=== PATIENT | male | born 1970 | race Caucasian/White ===

== ENCOUNTER 2022-10-17 22:52 | Emergency (ER) | payer OTHER ==
[2022-10-18] MEDS ORDERED: Morphine 4 MG/ML VIAL ONE ×2 (00:12→01:59)
[2022-10-18] MEDS ORDERED: HYDROcodone/Acetaminophen 10/325 mg Tablet ONE (00:12)
[2022-10-18 00:47] LABS: #Eosinphils 0.3 10x3/uL (0.0-0.5); #Monocytes 1.3 10x3/uL (0.0-1.1); #Neutrophils 8.3 10x3/uL (1.5-8.4); %Basophils 0.2 % (0.0-2.0); %Eosinophils 2.4 % (0.0-6.0); %Lymphocytes 22.8 % (18.0-47.0); %Monocytes 10.2 % (0.0-10.0); Hemoglobin 15.2 g/dL (13.5-17.5); Mean Corpuscular Hemoglobin 26.7 pg (27.0-33.0); Mean Platelet Volume 11.6 fl (7.4-10.4); Platelet Count 358 10x3/uL (150-450); RBC Distribution Width 16.6 % (11.5-14.5)
[2022-10-18 00:56] LABS: ALT (SGPT) 21 U/L (8-55); AST (SGOT) 19 U/L (5-34); Albumin 4.4 g/dL (3.5-5.0); Alkaline Phosphatase 71 U/L (40-110); Anion Gap 21 mmol/L (10-20); BUN (Urea Nitrogen) 16 mg/dL (8.4-25.7); Bilirubin, Total 0.8 mg/dL (0.2-1.2); CK (CPK) 27 U/L (30-200); Calc. Creatinine Clearance 0 mL/min (70-130); Calcium 9.8 mg/dL (7.8-10.44); Carbon Dioxide 22 mmol/L (22-29); Chloride 102 mmol/L (98-107); Estimated GFR 71; Globulin 3.7 g/dL (2.4-3.5); Glucose 140 mg/dL (70-105); Potassium 4.7 mmol/L (3.5-5.1); Protein, Total 8.1 g/dL (6.0-8.3); Sodium 140 mmol/L (136-145)
== END 2022-10-18 02:23 | disposition home or self-care (01) ==
LOC: CJX 22:52 → CSHERS 10-18 02:23
DX: R25.1 Tremor, unspecified (principal); R52 Pain, unspecified; E11.9 Type 2 diabetes mellitus without complications; E78.5 Hyperlipidemia, unspecified; I10 Essential (primary) hypertension; Z86.711 Personal history of pulmonary embolism; Z79.899 Other long term (current) drug therapy; Z79.82 Long term (current) use of aspirin; Z79.84 Long term (current) use of oral hypoglycemic drugs
CPT/HCPCS: 80053; 82550; 84484; 85025; 93005; 96374; 96376; J2270

== ENCOUNTER → 2022-11-12 | Emergency (ER) | payer OTHER ==
[~2022-11-12] MED LIST: HYDROcodone/Acetaminophen 10/325 mg Tablet ONE; HYDROcodone/Acetaminophen 5/325 mg Tablet ONE; Haloperidol Lactate 5 MG/ML VIAL ONE; Lorazepam 2 MG/ML VIAL ONE; Morphine ER 15 MG TAB PO SCH; diphenhydrAMINE 50 MG/ML VIAL ONE
[2022-11-12 17:36] LABS: #Monocytes 0.5 10x3/uL (0.0-1.1); #Neutrophils 8.2 10x3/uL (1.5-8.4); %Basophils 0.2 % (0.0-2.0); %Eosinophils 0.3 % (0.0-6.0); %Lymphocytes 10.2 % (18.0-47.0); %Monocytes 5.2 % (0.0-10.0); %Neutrophils 83.7 % (40.0-75.0); Hemoglobin 11.4 g/dL (13.5-17.5); Mean Corpuscular HGB CONC 30.9 g/dL (32.0-36.0); Mean Corpuscular Hemoglobin 27.2 pg (27.0-33.0); Mean Corpuscular Volume 88.1 fl (81.2-95.1); Mean Platelet Volume 10.7 fl (7.4-10.4); Platelet Count 263 10x3/uL (150-450); RBC Distribution Width 17.7 % (11.5-14.5); Red Blood Cell (RBC) Count 4.19 10x6/uL (4.32-5.72); White Blood Cell (WBC) Count 9.8 10x3/uL (3.5-10.5)
[2022-11-12 17:43] LABS: Acetaminophen Less than 10.0 mcg/mL (10.0-30.0); Alcohol Less than 10 mg/dL (Less than 10); Salicylate Less than 8.0 mg/dL (15.0-30.0)
[2022-11-12 17:44] LABS: ALT (SGPT) 18 U/L (8-55); AST (SGOT) 30 U/L (5-34); Albumin 4.1 g/dL (3.5-5.0); Alkaline Phosphatase 82 U/L (40-110); Anion Gap 12 mmol/L (10-20); BUN (Urea Nitrogen) 13 mg/dL (8.4-25.7); Bilirubin, Total 1.1 mg/dL (0.2-1.2); Calc. Creatinine Clearance 0 mL/min (70-130); Carbon Dioxide 28 mmol/L (22-29); Chloride 102 mmol/L (98-107); Estimated GFR 76; Globulin 2.9 g/dL (2.4-3.5); Glucose 239 mg/dL (70-105); Potassium 4.4 mmol/L (3.5-5.1); Sodium 138 mmol/L (136-145)
[2022-11-12 17:56] LABS: Bilirubin Neg (Negative); Blood, Urine Negative (Negative); Clarity Clear (Clear); Glucose, Urine (Dipstick) >=1000 mg/dL (Negative); Ketone, Urine Negative (Negative); Leukocyte Negative (Negative); Nitrite Negative (Negative); Protein, Urine (Dipstick) Negative (Neg-Trace)
[2022-11-12 18:06] LABS: Amphetamine Detected (NotDetected); Barbiturates Screen Not Detected (NotDetected); Benzodiazepine Screen Detected (NotDetected); Cocaine Metabolite Screen Not Detected (NotDetected); Methadone Not Detected (NotDetected); Methamphetamine Not Detected (NotDetected); Opiate Screen Detected (NotDetected); Oxycodone Screen Not Detected (NotDetected); Phencyclidine (PCP) Not Detected (NotDetected); THC/Cannabinoid Screen Not Detected (NotDetected); Tricyclic Screen Detected (NotDetected)
== END ==
LOC: CSHERS 17:03
DX: R45.851 Suicidal ideations (principal); R45.850 Homicidal ideations; E11.9 Type 2 diabetes mellitus without complications; E78.5 Hyperlipidemia, unspecified; I10 Essential (primary) hypertension; Z79.899 Other long term (current) drug therapy; Z79.84 Long term (current) use of oral hypoglycemic drugs; Z79.4 Long term (current) use of insulin
CPT/HCPCS: 36416; 80053; 80306; 80307; 81003; 85025; 96372; 99285; J1200; J1630; J2060

== ENCOUNTER 2023-02-05 13:28 | Inpatient (IN) | payer OTHER ==
[~2023-02-05 13:28] MED LIST changes: -HYDROcodone/Acetaminophen 10/325 mg Tablet ONE; -HYDROcodone/Acetaminophen 5/325 mg Tablet ONE; -Haloperidol Lactate 5 MG/ML VIAL ONE; +Iopamidol 300 61% 100 ML VIAL FS ONE; +Iopamidol 370 76% 100 ML VIAL ONE; -Lorazepam 2 MG/ML VIAL ONE; -Morphine ER 15 MG TAB PO SCH; -diphenhydrAMINE 50 MG/ML VIAL ONE
[2023-02-05] MEDS ORDERED: Naloxone HCl 0.4 mg/ml Vial ONE (14:17)
[2023-02-05 14:37] LABS: ALT (SGPT) 16 U/L (8-55); AST (SGOT) 22 U/L (5-34); Albumin 3.6 g/dL (3.5-5.0); Alkaline Phosphatase 76 U/L (40-110); Anion Gap 15 mmol/L (10-20); BUN (Urea Nitrogen) 14 mg/dL (8.4-25.7); Bilirubin, Total 0.6 mg/dL (0.2-1.2); Calc. Creatinine Clearance 0 mL/min (70-130); Calcium 8.6 mg/dL (7.8-10.44); Carbon Dioxide 27 mmol/L (22-29); Chloride 94 mmol/L (98-107); Estimated GFR 70; Glucose 252 mg/dL (70-105); Lipase 16 U/L (8-78); Potassium 3.6 mmol/L (3.5-5.1); Protein, Total 6.6 g/dL (6.0-8.3); Sodium 132 mmol/L (136-145)
[2023-02-05 14:39] LABS: #Basophils 0.1 10x3/uL (0.0-0.2); #Eosinphils 0.5 10x3/uL (0.0-0.5); #Monocytes 1.5 10x3/uL (0.0-1.1); #Neutrophils 19.4 10x3/uL (1.5-8.4); %Basophils 0.2 % (0.0-2.0); %Eosinophils 2.3 % (0.0-6.0); %Lymphocytes 5.7 % (18.0-47.0); %Monocytes 6.4 % (0.0-10.0); %Neutrophils 84.9 % (40.0-75.0); Hemoglobin 13.2 g/dL (13.5-17.5); Mean Corpuscular HGB CONC 32.1 g/dL (32.0-36.0); Mean Corpuscular Hemoglobin 28.1 pg (27.0-33.0); Mean Corpuscular Volume 87.6 fl (81.2-95.1); Mean Platelet Volume 10.3 fl (7.4-10.4); Platelet Count 312 10x3/uL (150-450); RBC Distribution Width 14.7 % (11.5-14.5); Red Blood Cell (RBC) Count 4.69 10x6/uL (4.32-5.72); White Blood Cell (WBC) Count 22.8 10x3/uL (3.5-10.5)
[2023-02-05] MEDS ORDERED: cefTRIAXone (ROCEPHIN) 1 GM VIAL ONE (15:47)
[2023-02-05 15:48] LABS: Bilirubin Neg (Negative); Blood, Urine Negative (Negative); Clarity Clear (Clear); Glucose, Urine (Dipstick) >=1000 mg/dL (Negative); Ketone, Urine Negative (Negative); Leukocyte Negative (Negative); Nitrite Negative (Negative); Protein, Urine (Dipstick) 15 mg/dl (Neg-Trace); Urobilinogen Normal mg/dL (Less than 2)
[2023-02-05] MEDS ORDERED: Azithromycin 500 MG VIAL ONE (15:48)
[2023-02-05 16:20] LABS: Bacteria/HPF None Seen HPF (None Seen); CAUTI Indications for Culture Alt mental st,lethar; RBC/HPF None Seen HPF (0-3); Squamous Epithelial None Seen HPF (0-3); Urine Culture Reflex No No; WBC/HPF None Seen HPF (0-3)
[2023-02-05 17:19] LABS: Lactic Acid 1.8 mmol/L (0.5-2.2)
[2023-02-05 18:55] LABS: Actual Bicarbonate (HCO3v) 32.9 mEq/L (22-28); Base Excess 4.9 mEq/L (-2 - +2); Calcium, Ionized (venous) 1.04 mmol/L (1.16-1.32); Chloride (VBG) 96 mmol/L (98-106); Hematocrit-VBG 39 % (42.0-52.0); Hemoglobin (Hb) 13.4 g/dL (13.1-17.2); Potassium (VBG) 4.33 mmol/L (3.70-5.30); Puncture Site Other Site; RapidComm Collect By CBN; Sodium 133.7 mmol/L (133-146); pH (venous) 7.322 (7.32-7.43)
[2023-02-05 20:58] LABS: SARS-CoV-2 NAA Rapid Test Not Detected (NotDetected)
[2023-02-05] MEDS ORDERED: Cefepime 2 GM in Sodium Chloride 0.9% 100 ML IVPB SCH (21:00)
[2023-02-05] MEDS ORDERED: Dextrose 5% in Water 1,000 ML IV PRN (21:36)
[2023-02-05] MEDS ORDERED: Dextrose 50% Abboject 50 ML SYRINGE SLOW IVP PRN (21:36)
[2023-02-05] MEDS ORDERED: Glucagon 1 MG/ML KIT IM PRN (21:36)
[2023-02-05] MEDS ORDERED: Insulin Regular 300 UNITS/3 ML VIAL SC PRN (21:36)
[2023-02-05 23:51] VITALS: BMI 41.1
[2023-02-06] MEDS: Cefepime 2 GM in Sodium Chloride 0.9% 100 ML IVPB SCH ×3 (00:08→23:01)
[2023-02-06] MEDS ORDERED: DULoxetine 30 MG CAP PO SCH ×2 (01:15→09:00)
[2023-02-06] MEDS ORDERED: Lantus 1000 UNITS/10 ML VIAL SC SCH ×2 (01:15→21:00)
[2023-02-06] MEDS: HYDROcodone/Acetaminophen 10/325 mg Tablet PO PRN ×2 (01:29→13:04)
[2023-02-06] MEDS ORDERED: Azithromycin 500 MG in Sodium Chloride 0.9% 250 ML 250 ML IVPB SCH (02:30)
[2023-02-06 03:59] LABS: #Eosinphils 0.7 10x3/uL (0.0-0.5); %Basophils 0.2 % (0.0-2.0); %Lymphocytes 11.3 % (18.0-47.0); %Monocytes 7.2 % (0.0-10.0); Hemoglobin 11.9 g/dL (13.5-17.5); Mean Corpuscular HGB CONC 31.8 g/dL (32.0-36.0); Mean Corpuscular Hemoglobin 27.8 pg (27.0-33.0); Mean Corpuscular Volume 87.4 fl (81.2-95.1); Mean Platelet Volume 10.4 fl (7.4-10.4); Platelet Count 298 10x3/uL (150-450); RBC Distribution Width 14.9 % (11.5-14.5); Red Blood Cell (RBC) Count 4.28 10x6/uL (4.32-5.72); White Blood Cell (WBC) Count 14.4 10x3/uL (3.5-10.5)
[2023-02-06 04:22] LABS: ALT (SGPT) 12 U/L (8-55); AST (SGOT) 17 U/L (5-34); Albumin 3.2 g/dL (3.5-5.0); Alkaline Phosphatase 67 U/L (40-110); Anion Gap 17 mmol/L (10-20); BUN (Urea Nitrogen) 12 mg/dL (8.4-25.7); Bilirubin, Total 0.5 mg/dL (0.2-1.2); Calc. Creatinine Clearance 183 mL/min (70-130); Calcium 8.5 mg/dL (7.8-10.44); Carbon Dioxide 26 mmol/L (22-29); Chloride 99 mmol/L (98-107); Estimated GFR 94; Globulin 2.9 g/dL (2.4-3.5); Glucose 128 mg/dL (70-105); Protein, Total 6.1 g/dL (6.0-8.3); Sodium 139 mmol/L (136-145)
[2023-02-06 05:01] LABS: Legionella Urinary Ag Negative (Negative); Strep pneumo Urine Ag NEGATIVE (NEGATIVE)
[2023-02-06] MEDS ORDERED: Electrolyte Replacement Protocol 1 EACH FS PRN (05:08)
[2023-02-06] MEDS ORDERED: Potassium Chloride 20 MEQ TAB PO SCH (05:15)
[2023-02-06 05:35] LABS: Magnesium 1.7 mg/dL (1.6-2.6); Phosphorus 1.9 mg/dL (2.3-4.7)
[2023-02-06] MEDS: Mometasone/Formoterol 200/5 60 PUFF INH SCH ×2 (06:45→20:00)
[2023-02-06] MEDS ORDERED: Naloxone HCl 0.4 mg/ml Vial IV PRN (07:56)
[2023-02-06] MEDS ORDERED: predniSONE 10 MG TAB PO SCH ×2 (08:00→10:00)
[2023-02-06] MEDS ORDERED: Magnesium 2 GM/50 ML(in water) 2 GM in Premix Bag 1 BAG IVPB SCH (09:00)
[2023-02-06] MEDS ORDERED: ALPRAZolam 1 MG TAB PO SCH (09:00)
[2023-02-06] MEDS: Morphine ER 15 MG TAB PO SCH ×3 (09:02→23:04)
[2023-02-06] MEDS: Apixaban 5 MG TAB PO SCH ×2 (09:03→23:06)
[2023-02-06] MEDS: PHOS-NAK 1 PKT PACK PO SCH ×2 (09:03→12:52)
[2023-02-06] MEDS: ALPRAZolam 1 MG TAB PO SCH ×3 (09:04→23:25)
[2023-02-06] MEDS: tiZANidine HCl 4 MG TAB PO SCH ×2 (09:05→23:04)
[2023-02-06] MEDS: Aspirin 81 mg Enteric Coated Tablet PO SCH (09:05)
[2023-02-06] MEDS: metFORMIN 500 MG TAB PO SCH ×3 (09:05→23:05)
[2023-02-06] MEDS: Metoprolol Tartrate 25 MG TAB PO SCH ×2 (09:05→23:05)
[2023-02-06] MEDS: Pregabalin 75 MG CAP PO SCH ×3 (15:11→23:03)
[2023-02-06] MEDS ORDERED: VANCOMYCIN 2 GRAM/400 ML BAG 2 GM in Premix Bag 1 BAG IVPB SCH (16:00)
[2023-02-06] MEDS: DULoxetine 30 MG CAP PO SCH ×2 (22:30→23:04)
[2023-02-06] MEDS: Atorvastatin Calcium 10 MG TAB PO SCH ×2 (22:30→23:05)
[2023-02-06] MEDS: traZODone HCl 50 MG TAB PO SCH (23:06)
[2023-02-07 04:28] LABS: #Eosinphils 0.1 10x3/uL (0.0-0.5); #Monocytes 0.6 10x3/uL (0.0-1.1); #Neutrophils 7.8 10x3/uL (1.5-8.4); %Basophils 0.1 % (0.0-2.0); %Eosinophils 0.9 % (0.0-6.0); %Lymphocytes 11.1 % (18.0-47.0); %Monocytes 6.5 % (0.0-10.0); Hemoglobin 11.6 g/dL (13.5-17.5); Mean Corpuscular Volume 87.5 fl (81.2-95.1); Mean Platelet Volume 10.4 fl (7.4-10.4); Platelet Count 275 10x3/uL (150-450); RBC Distribution Width 14.8 % (11.5-14.5); Red Blood Cell (RBC) Count 4.15 10x6/uL (4.32-5.72); White Blood Cell (WBC) Count 9.6 10x3/uL (3.5-10.5)
[2023-02-07] MEDS: VANCOMYCIN 1.75 GM/350 ML BAG 1.75 GM in Premix Bag 1 BAG IVPB SCH ×2 (04:38→18:39)
[2023-02-07 04:46] LABS: ALT (SGPT) 9 U/L (8-55); AST (SGOT) 13 U/L (5-34); Albumin 3.3 g/dL (3.5-5.0); Alkaline Phosphatase 58 U/L (40-110); Anion Gap 13 mmol/L (10-20); BUN (Urea Nitrogen) 10 mg/dL (8.4-25.7); Bilirubin, Total 0.6 mg/dL (0.2-1.2); Calc. Creatinine Clearance 222 mL/min (70-130); Calcium 8.5 mg/dL (7.8-10.44); Carbon Dioxide 28 mmol/L (22-29); Chloride 98 mmol/L (98-107); Estimated GFR 106; Globulin 2.9 g/dL (2.4-3.5); Glucose 179 mg/dL (70-105); Phosphorus 2.4 mg/dL (2.3-4.7); Potassium 3.4 mmol/L (3.5-5.1); Protein, Total 6.2 g/dL (6.0-8.3); Sodium 136 mmol/L (136-145)
[2023-02-07] MEDS ORDERED: Potassium Chloride 20 MEQ TAB PO SCH (08:00)
[2023-02-07] MEDS ORDERED: Magnesium 2 GM/50 ML(in water) 2 GM in Premix Bag 1 BAG IVPB SCH (08:00)
[2023-02-07] MEDS: DULoxetine 30 MG CAP PO SCH ×2 (10:05→21:14)
[2023-02-07] MEDS: Apixaban 5 MG TAB PO SCH ×2 (10:05→21:14)
[2023-02-07] MEDS: Aspirin 81 mg Enteric Coated Tablet PO SCH (10:05)
[2023-02-07] MEDS: ALPRAZolam 1 MG TAB PO SCH ×2 (10:05→21:12)
[2023-02-07] MEDS: Morphine ER 15 MG TAB PO SCH ×3 (10:06→21:13)
[2023-02-07] MEDS: Metoprolol Tartrate 25 MG TAB PO SCH ×2 (10:06→21:14)
[2023-02-07] MEDS: predniSONE 20 MG TAB PO SCH (10:07)
[2023-02-07] MEDS: metFORMIN 500 MG TAB PO SCH ×2 (10:07→21:12)
[2023-02-07] MEDS: tiZANidine HCl 4 MG TAB PO SCH ×2 (10:07→21:13)
[2023-02-07] MEDS: Mometasone/Formoterol 200/5 60 PUFF INH SCH ×2 (10:20→18:38)
[2023-02-07] MEDS: Pregabalin 75 MG CAP PO SCH ×3 (10:48→21:11)
[2023-02-07] MEDS: Cefepime 2 GM in Sodium Chloride 0.9% 100 ML IVPB SCH (14:10)
[2023-02-07] MEDS ORDERED: Lantus 1000 UNITS/10 ML VIAL SC SCH (21:00)
[2023-02-07] MEDS: traZODone HCl 50 MG TAB PO SCH (21:12)
[2023-02-07] MEDS: Atorvastatin Calcium 10 MG TAB PO SCH (21:13)
[2023-02-08] MEDS: Cefepime 2 GM in Sodium Chloride 0.9% 100 ML IVPB SCH ×2 (02:51→12:03)
[2023-02-08] MEDS: HYDROcodone/Acetaminophen 10/325 mg Tablet PO PRN (02:53)
[2023-02-08] MEDS: Pregabalin 75 MG CAP PO SCH ×2 (04:23→15:00)
[2023-02-08] MEDS: VANCOMYCIN 1.75 GM/350 ML BAG 1.75 GM in Premix Bag 1 BAG IVPB SCH ×2 (04:23→15:16)
[2023-02-08] MEDS: Insulin Regular 300 UNITS/3 ML VIAL SC PRN ×3 (06:26→17:21)
[2023-02-08] MEDS: Morphine ER 15 MG TAB PO SCH ×2 (08:27→15:14)
[2023-02-08] MEDS: ALPRAZolam 1 MG TAB PO SCH (08:28)
[2023-02-08] MEDS: Apixaban 5 MG TAB PO SCH (08:28)
[2023-02-08] MEDS: predniSONE 20 MG TAB PO SCH (08:28)
[2023-02-08] MEDS: DULoxetine 30 MG CAP PO SCH (08:29)
[2023-02-08] MEDS: Aspirin 81 mg Enteric Coated Tablet PO SCH (08:29)
[2023-02-08] MEDS: metFORMIN 500 MG TAB PO SCH (08:29)
[2023-02-08] MEDS: tiZANidine HCl 4 MG TAB PO SCH (08:30)
[2023-02-08] MEDS: Metoprolol Tartrate 25 MG TAB PO SCH (08:30)
[2023-02-08 09:03] LABS: #Eosinphils 0.4 10x3/uL (0.0-0.5); #Monocytes 0.7 10x3/uL (0.0-1.1); #Neutrophils 8.2 10x3/uL (1.5-8.4); %Basophils 0.3 % (0.0-2.0); %Lymphocytes 18.8 % (18.0-47.0); %Monocytes 6.3 % (0.0-10.0); %Neutrophils 71.3 % (40.0-75.0); Hemoglobin 13.8 g/dL (13.5-17.5); Mean Corpuscular HGB CONC 31.4 g/dL (32.0-36.0); Mean Corpuscular Hemoglobin 28.2 pg (27.0-33.0); Mean Corpuscular Volume 89.8 fl (81.2-95.1); Mean Platelet Volume 10.3 fl (7.4-10.4); Platelet Count 314 10x3/uL (150-450); RBC Distribution Width 15.1 % (11.5-14.5); Red Blood Cell (RBC) Count 4.89 10x6/uL (4.32-5.72); White Blood Cell (WBC) Count 11.5 10x3/uL (3.5-10.5)
[2023-02-08 09:37] LABS: ALT (SGPT) 10 U/L (8-55); AST (SGOT) 18 U/L (5-34); Albumin 3.7 g/dL (3.5-5.0); Alkaline Phosphatase 77 U/L (40-110); Anion Gap 16 mmol/L (10-20); BUN (Urea Nitrogen) 7 mg/dL (8.4-25.7); Bilirubin, Total 0.5 mg/dL (0.2-1.2); Calc. Creatinine Clearance 216 mL/min (70-130); Calcium 9.1 mg/dL (7.8-10.44); Carbon Dioxide 23 mmol/L (22-29); Chloride 105 mmol/L (98-107); Estimated GFR 106; Globulin 3.6 g/dL (2.4-3.5); Glucose 150 mg/dL (70-105); Potassium 3.9 mmol/L (3.5-5.1); Protein, Total 7.3 g/dL (6.0-8.3); Sodium 140 mmol/L (136-145)
[2023-02-08 15:57] LABS: Vancomycin, Trough 16.1 ug/mL
[2023-02-08 16:00] VITALS: BP 124/86; TEMP 98.2
[2023-02-11 22:08] LABS: Mycoplasma pneumoniae IgG AB 113 U/mL (0-99); Mycoplasma pneumoniae IgM AB Less than 770 U/mL (0-769)
== END 2023-02-08 18:38 | disposition home or self-care (01) | DRG 871 ==
LOC: CSHERS 13:28 → CSHTELE 23:34
PROVIDERS: ADMIT Internal Medicine; ATTEND Internal Medicine
PROC: 4A033R1 Measurement of Arterial Saturation, Peripheral, Percutaneous Approach (ICD-10-PCS; principal; 2023-02-05)
PROC: 3E03329 Introduction of Other Anti-infective into Peripheral Vein, Percutaneous Approach (ICD-10-PCS; 2023-02-05)
DX: A41.9 Sepsis, unspecified organism (principal); J18.9 Pneumonia, unspecified organism; J96.21 Acute and chronic respiratory failure with hypoxia; Z68.41 Body mass index [BMI] 40.0-44.9, adult; Z20.822 Contact with and (suspected) exposure to COVID-19; I10 Essential (primary) hypertension; E78.5 Hyperlipidemia, unspecified; F41.9 Anxiety disorder, unspecified; F32.A Depression, unspecified; K46.9 Unspecified abdominal hernia without obstruction or gangrene; E11.9 Type 2 diabetes mellitus without complications; D86.9 Sarcoidosis, unspecified; G89.29 Other chronic pain; M79.7 Fibromyalgia; G47.00 Insomnia, unspecified; E66.01 Morbid (severe) obesity due to excess calories; Z79.84 Long term (current) use of oral hypoglycemic drugs; Z79.52 Long term (current) use of systemic steroids; Z79.82 Long term (current) use of aspirin; Z79.899 Other long term (current) drug therapy; Z79.01 Long term (current) use of anticoagulants; Z79.4 Long term (current) use of insulin; Z91.09 Other allergy status, other than to drugs and biological substances; Z88.8 Allergy status to other drugs, medicaments and biological substances; Z88.1 Allergy status to other antibiotic agents; Z95.5 Presence of coronary angioplasty implant and graft; Z86.711 Personal history of pulmonary embolism; Z98.84 Bariatric surgery status; Z95.810 Presence of automatic (implantable) cardiac defibrillator
CPT/HCPCS: 36415; 36416; 71045; 71275; 74177; 80053; 80202; 81001; 82805; 83605; 83690; 83735; 84100; 84132; 84145; 85025; 87040; 87081; 87449; 87633; 87899; 94664; 94760; 96365; 96375; J0456; J0692; J0696; J1815; J2310; J3370; J3475; J3490; J7050; J7512; Q9967

== ENCOUNTER 2023-04-01 14:54 | Inpatient (IN) | payer OTHER ==
[~2023-04-01 14:54] MED LIST changes: -Iopamidol 300 61% 100 ML VIAL FS ONE
[2023-04-01] MEDS ORDERED: cefTRIAXone (ROCEPHIN) 1 GM VIAL ONE (15:34)
[2023-04-01 15:43] LABS: #Eosinphils 0.3 10x3/uL (0.0-0.5); #Monocytes 1.4 10x3/uL (0.0-1.1); #Neutrophils 10.3 10x3/uL (1.5-8.4); %Basophils 0.1 % (0.0-2.0); %Eosinophils 1.7 % (0.0-6.0); %Lymphocytes 17.5 % (18.0-47.0); %Monocytes 9.8 % (0.0-10.0); %Neutrophils 70.4 % (40.0-75.0); Hematocrit 42.8 % (38.8-50.0); Hemoglobin 13.2 g/dL (13.5-17.5); Mean Corpuscular HGB CONC 30.8 g/dL (32.0-36.0); Mean Corpuscular Volume 84.3 fl (81.2-95.1); Mean Platelet Volume 10.5 fl (7.4-10.4); Platelet Count 390 10x3/uL (150-450); RBC Distribution Width 15.3 % (11.5-14.5); Red Blood Cell (RBC) Count 5.08 10x6/uL (4.32-5.72); White Blood Cell (WBC) Count 14.6 10x3/uL (3.5-10.5)
[2023-04-01 15:59] LABS: ALT (SGPT) 17 U/L (8-55); AST (SGOT) 19 U/L (5-34); Albumin 3.8 g/dL (3.5-5.0); Alkaline Phosphatase 61 U/L (40-110); Anion Gap 18 mmol/L (10-20); BUN (Urea Nitrogen) 31 mg/dL (8.4-25.7); Bilirubin, Total 0.6 mg/dL (0.2-1.2); Calc. Creatinine Clearance 0 mL/min (70-130); Calcium 9.1 mg/dL (7.8-10.44); Carbon Dioxide 24 mmol/L (22-29); Chloride 99 mmol/L (98-107); Estimated GFR 32; Globulin 3.2 g/dL (2.4-3.5); Glucose 218 mg/dL (70-105); Potassium 3.5 mmol/L (3.5-5.1); Sodium 137 mmol/L (136-145)
[2023-04-01 16:04] LABS: Troponin I 0.034 ng/mL (< 0.028)
[2023-04-01] MEDS ORDERED: Acetaminophen 500 MG TAB ONE (16:40)
[2023-04-01] MEDS ORDERED: Dextrose 50% Abboject 50 ML SYRINGE SLOW IVP PRN (16:52)
[2023-04-01] MEDS ORDERED: Dextrose 5% in Water 1,000 ML IV PRN (16:52)
[2023-04-01] MEDS ORDERED: Acetaminophen 325 MG TAB PO PRN (16:52)
[2023-04-01] MEDS ORDERED: Glucagon 1 MG/ML KIT IM PRN (16:52)
[2023-04-01 18:26] LABS: Lactic Acid 2.4 mmol/L (0.5-2.2)
[2023-04-01 18:53] LABS: Magnesium 2.2 mg/dL (1.6-2.6)
[2023-04-01 18:57] LABS: Troponin I 0.024 ng/mL (< 0.028)
[2023-04-01 21:34] VITALS: BMI 39.5
[2023-04-01] MEDS: Sodium Chloride 0.9% 1,000 ML IV SCH (22:05)
[2023-04-01] MEDS: Apixaban 5 MG TAB PO SCH (22:06)
[2023-04-01] MEDS: Lantus 1000 UNITS/10 ML VIAL SC SCH (22:06)
[2023-04-01] MEDS: Cefepime 2 GM in Sodium Chloride 0.9% 100 ML IVPB SCH (22:18)
[2023-04-01 22:22] LABS: Troponin I 0.023 ng/mL (< 0.028)
[2023-04-01] MEDS ORDERED: HYDROcodone/Acetaminophen 5/325 mg Tablet PO SCH (23:45)
[2023-04-01] MEDS ORDERED: Morphine ER 15 MG TAB PO SCH (23:45)
[2023-04-01] MEDS ORDERED: VANCOMYCIN 2 GRAM/400 ML BAG 2 GM in Premix Bag 1 BAG IVPB SCH (23:59)
[2023-04-02] MEDS: Sodium Chloride 0.9% 1,000 ML IV SCH ×3 (04:28→21:49)
[2023-04-02 04:56] LABS: #Eosinphils 0.5 10x3/uL (0.0-0.5); #Monocytes 1.2 10x3/uL (0.0-1.1); #Neutrophils 7.5 10x3/uL (1.5-8.4); %Basophils 0.3 % (0.0-2.0); %Eosinophils 3.9 % (0.0-6.0); %Lymphocytes 24.4 % (18.0-47.0); %Monocytes 9.5 % (0.0-10.0); %Neutrophils 61.4 % (40.0-75.0); Hematocrit 42.8 % (38.8-50.0); Hemoglobin 12.8 g/dL (13.5-17.5); Mean Corpuscular HGB CONC 29.9 g/dL (32.0-36.0); Mean Corpuscular Hemoglobin 26.4 pg (27.0-33.0); Mean Corpuscular Volume 88.4 fl (81.2-95.1); Platelet Count 339 10x3/uL (150-450); RBC Distribution Width 15.8 % (11.5-14.5); Red Blood Cell (RBC) Count 4.84 10x6/uL (4.32-5.72); White Blood Cell (WBC) Count 12.3 10x3/uL (3.5-10.5)
[2023-04-02 05:12] LABS: ALT (SGPT) 17 U/L (8-55); AST (SGOT) 23 U/L (5-34); Albumin 3.8 g/dL (3.5-5.0); Alkaline Phosphatase 61 U/L (40-110); Anion Gap 16 mmol/L (10-20); BUN (Urea Nitrogen) 30 mg/dL (8.4-25.7); Bilirubin, Total 0.4 mg/dL (0.2-1.2); Calc. Creatinine Clearance 89 mL/min (70-130); Calcium 8.6 mg/dL (7.8-10.44); Carbon Dioxide 26 mmol/L (22-29); Chloride 100 mmol/L (98-107); Estimated GFR 42; Globulin 3.4 g/dL (2.4-3.5); Glucose 122 mg/dL (70-105); Potassium 3.7 mmol/L (3.5-5.1); Protein, Total 7.2 g/dL (6.0-8.3); Sodium 138 mmol/L (136-145)
[2023-04-02 05:41] LABS: Bilirubin Neg (Negative); Blood, Urine Negative (Negative); Clarity Clear (Clear); Glucose, Urine (Dipstick) Normal (Negative); Ketone, Urine Negative (Negative); Leukocyte 25 (Negative); Nitrite Negative (Negative); Protein, Urine (Dipstick) 30 mg/dl (Neg-Trace); Urobilinogen Normal mg/dL (Less than 2)
[2023-04-02 05:56] LABS: Bacteria/HPF Rare-Few HPF (None Seen); CAUTI Indications for Culture Fever or rigors; RBC/HPF None Seen HPF (0-3); Squamous Epithelial 0-3 HPF (0-3)
[2023-04-02 05:57] LABS: Urine Culture Reflex No No
[2023-04-02] MEDS ORDERED: Metoprolol Tartrate 25 MG TAB PO SCH (09:00)
[2023-04-02] MEDS ORDERED: Morphine ER 30 MG TAB PO SCH (09:00)
[2023-04-02] MEDS ORDERED: Morphine ER 15 MG TAB PO SCH ×2 (09:30→15:00)
[2023-04-02] MEDS: Cefepime 2 GM in Sodium Chloride 0.9% 100 ML IVPB SCH ×2 (09:45→21:47)
[2023-04-02] MEDS: predniSONE 20 MG TAB PO SCH (09:48)
[2023-04-02] MEDS: Atorvastatin Calcium 10 MG TAB PO SCH (09:48)
[2023-04-02] MEDS: Apixaban 5 MG TAB PO SCH ×2 (09:48→21:47)
[2023-04-02] MEDS: Furosemide 20 MG TAB PO SCH ×2 (09:56→14:59)
[2023-04-02] MEDS: Topiramate 25 MG TAB PO SCH ×2 (09:58→21:47)
[2023-04-02] MEDS: Lubiprostone 8 MCG CAP PO SCH ×2 (09:59→23:20)
[2023-04-02] MEDS: Morphine ER 15 MG TAB PO SCH ×2 (14:59→21:47)
[2023-04-02] MEDS: metFORMIN 500 MG TAB PO SCH (17:12)
[2023-04-02] MEDS: Insulin Regular 300 UNITS/3 ML VIAL SC PRN (17:26)
[2023-04-02] MEDS: Lantus 1000 UNITS/10 ML VIAL SC SCH (21:46)
[2023-04-02] MEDS: Metoprolol Tartrate 25 MG TAB PO SCH (21:47)
[2023-04-02] MEDS: VANCOMYCIN 1.75 GM/350 ML BAG 1.75 GM in Premix Bag 1 BAG IVPB SCH (23:42)
[2023-04-03] MEDS: Lubiprostone 8 MCG CAP PO SCH ×4 (00:01→21:28)
[2023-04-03] MEDS: HYDROcodone/Acetaminophen 10/325 mg Tablet PO PRN ×3 (04:01→21:18)
[2023-04-03 05:43] LABS: #Eosinphils 0.4 10x3/uL (0.0-0.5); #Monocytes 0.9 10x3/uL (0.0-1.1); #Neutrophils 6.6 10x3/uL (1.5-8.4); %Basophils 0.2 % (0.0-2.0); %Eosinophils 4.2 % (0.0-6.0); %Lymphocytes 23.9 % (18.0-47.0); %Monocytes 8.5 % (0.0-10.0); %Neutrophils 62.7 % (40.0-75.0); Hematocrit 39.4 % (38.8-50.0); Hemoglobin 12.3 g/dL (13.5-17.5); Mean Corpuscular HGB CONC 31.2 g/dL (32.0-36.0); Mean Corpuscular Hemoglobin 26.9 pg (27.0-33.0); Mean Corpuscular Volume 86.2 fl (81.2-95.1); Mean Platelet Volume 10.5 fl (7.4-10.4); Platelet Count 265 10x3/uL (150-450); RBC Distribution Width 15.4 % (11.5-14.5); Red Blood Cell (RBC) Count 4.57 10x6/uL (4.32-5.72); White Blood Cell (WBC) Count 10.4 10x3/uL (3.5-10.5)
[2023-04-03 05:54] LABS: ALT (SGPT) 13 U/L (8-55); AST (SGOT) 11 U/L (5-34); Albumin 3.4 g/dL (3.5-5.0); Alkaline Phosphatase 53 U/L (40-110); Anion Gap 10 mmol/L (10-20); BUN (Urea Nitrogen) 17 mg/dL (8.4-25.7); Bilirubin, Total 0.7 mg/dL (0.2-1.2); Calc. Creatinine Clearance 180 mL/min (70-130); Calcium 8.6 mg/dL (7.8-10.44); Carbon Dioxide 35 mmol/L (22-29); Chloride 99 mmol/L (98-107); Estimated GFR 96; Globulin 2.8 g/dL (2.4-3.5); Glucose 123 mg/dL (70-105); Potassium 4.2 mmol/L (3.5-5.1); Protein, Total 6.2 g/dL (6.0-8.3); Sodium 140 mmol/L (136-145)
[2023-04-03] MEDS: Metoprolol Tartrate 25 MG TAB PO SCH ×2 (10:10→20:27)
[2023-04-03] MEDS: Apixaban 5 MG TAB PO SCH ×2 (10:11→20:27)
[2023-04-03] MEDS: predniSONE 20 MG TAB PO SCH (10:11)
[2023-04-03] MEDS: Atorvastatin Calcium 10 MG TAB PO SCH (10:11)
[2023-04-03] MEDS: metFORMIN 500 MG TAB PO SCH ×2 (10:11→18:31)
[2023-04-03] MEDS: Furosemide 20 MG TAB PO SCH ×2 (10:17→15:34)
[2023-04-03] MEDS: Morphine ER 15 MG TAB PO SCH ×3 (10:42→20:28)
[2023-04-03] MEDS: Topiramate 25 MG TAB PO SCH ×2 (10:44→20:27)
[2023-04-03] MEDS: Cefepime 2 GM in Sodium Chloride 0.9% 100 ML IVPB SCH ×2 (11:32→21:04)
[2023-04-03] MEDS: Insulin Regular 300 UNITS/3 ML VIAL SC PRN ×2 (11:33→16:22)
[2023-04-03] MEDS: Sodium Chloride 0.9% 1,000 ML IV SCH ×2 (19:39→19:40)
[2023-04-03] MEDS: Lantus 1000 UNITS/10 ML VIAL SC SCH (20:28)
[2023-04-03 23:08] LABS: SARS-CoV-2 NAA Rapid Test Not Detected (NotDetected)
[2023-04-04 01:24] LABS: Vancomycin, Trough 7.3 ug/mL
[2023-04-04] MEDS: VANCOMYCIN 2 GRAM/400 ML BAG 2 GM in Premix Bag 1 BAG IVPB SCH (01:34)
[2023-04-04] MEDS: Sodium Chloride 0.9% 1,000 ML IV SCH ×2 (04:09→17:30)
[2023-04-04] MEDS: Metoprolol Tartrate 25 MG TAB PO SCH ×2 (08:10→20:28)
[2023-04-04] MEDS: predniSONE 20 MG TAB PO SCH (08:11)
[2023-04-04] MEDS: metFORMIN 500 MG TAB PO SCH ×2 (08:11→16:45)
[2023-04-04] MEDS: Atorvastatin Calcium 10 MG TAB PO SCH (08:12)
[2023-04-04] MEDS: Apixaban 5 MG TAB PO SCH ×2 (08:12→20:28)
[2023-04-04] MEDS: Morphine ER 15 MG TAB PO SCH ×3 (08:12→20:27)
[2023-04-04] MEDS: Furosemide 20 MG TAB PO SCH ×2 (08:12→14:39)
[2023-04-04] MEDS: Lubiprostone 8 MCG CAP PO SCH ×2 (08:31→20:28)
[2023-04-04] MEDS: Topiramate 25 MG TAB PO SCH (08:33)
[2023-04-04] MEDS: Cefepime 2 GM in Sodium Chloride 0.9% 100 ML IVPB SCH ×2 (09:22→21:39)
[2023-04-04] MEDS: Ondansetron ODT 4 MG TAB PO PRN (09:26)
[2023-04-04 09:33] LABS: #Eosinphils 0.4 10x3/uL (0.0-0.5); #Neutrophils 6.4 10x3/uL (1.5-8.4); %Basophils 0.2 % (0.0-2.0); %Eosinophils 3.4 % (0.0-6.0); %Lymphocytes 24.9 % (18.0-47.0); %Monocytes 9.5 % (0.0-10.0); %Neutrophils 61.7 % (40.0-75.0); Hematocrit 40.1 % (38.8-50.0); Hemoglobin 12.2 g/dL (13.5-17.5); Mean Corpuscular HGB CONC 30.4 g/dL (32.0-36.0); Mean Corpuscular Hemoglobin 26.3 pg (27.0-33.0); Mean Corpuscular Volume 86.6 fl (81.2-95.1); Mean Platelet Volume 10.3 fl (7.4-10.4); Platelet Count 242 10x3/uL (150-450); RBC Distribution Width 15.9 % (11.5-14.5); Red Blood Cell (RBC) Count 4.63 10x6/uL (4.32-5.72); White Blood Cell (WBC) Count 10.4 10x3/uL (3.5-10.5)
[2023-04-04 09:55] LABS: ALT (SGPT) 14 U/L (8-55); AST (SGOT) 16 U/L (5-34); Albumin 3.3 g/dL (3.5-5.0); Alkaline Phosphatase 44 U/L (40-110); Anion Gap 15 mmol/L (10-20); BUN (Urea Nitrogen) 14 mg/dL (8.4-25.7); Bilirubin, Total 1.1 mg/dL (0.2-1.2); Calc. Creatinine Clearance 196 mL/min (70-130); Calcium 8.5 mg/dL (7.8-10.44); Carbon Dioxide 25 mmol/L (22-29); Chloride 100 mmol/L (98-107); Estimated GFR 104; Glucose 117 mg/dL (70-105); Potassium 3.2 mmol/L (3.5-5.1); Protein, Total 6.3 g/dL (6.0-8.3); Sodium 137 mmol/L (136-145)
[2023-04-04] MEDS ORDERED: Morphine ER 15 MG TAB PO SCH (10:15)
[2023-04-04] MEDS ORDERED: Naloxone HCl 0.4 mg/ml Vial IV PRN (10:16)
[2023-04-04] MEDS: Insulin Regular 300 UNITS/3 ML VIAL SC PRN (16:43)
[2023-04-04] MEDS: Lantus 1000 UNITS/10 ML VIAL SC SCH (20:29)
[2023-04-04 21:09] LABS: Magnesium 1.6 mg/dL (1.6-2.6)
[2023-04-05] MEDS: Sodium Chloride 0.9% 1,000 ML IV SCH ×3 (01:57→21:37)
[2023-04-05] MEDS: VANCOMYCIN 2 GRAM/400 ML BAG 2 GM in Premix Bag 1 BAG IVPB SCH (01:57)
[2023-04-05 03:15] LABS: #Eosinphils 0.3 10x3/uL (0.0-0.5); #Monocytes 1.1 10x3/uL (0.0-1.1); #Neutrophils 6.2 10x3/uL (1.5-8.4); %Basophils 0.2 % (0.0-2.0); %Eosinophils 2.4 % (0.0-6.0); %Lymphocytes 26.7 % (18.0-47.0); %Monocytes 10.2 % (0.0-10.0); %Neutrophils 60.1 % (40.0-75.0); Hematocrit 39.7 % (38.8-50.0); Hemoglobin 12.4 g/dL (13.5-17.5); Mean Corpuscular HGB CONC 31.2 g/dL (32.0-36.0); Mean Corpuscular Hemoglobin 26.8 pg (27.0-33.0); Mean Corpuscular Volume 85.7 fl (81.2-95.1); Mean Platelet Volume 11.1 fl (7.4-10.4); Platelet Count 297 10x3/uL (150-450); RBC Distribution Width 15.9 % (11.5-14.5); Red Blood Cell (RBC) Count 4.63 10x6/uL (4.32-5.72); White Blood Cell (WBC) Count 10.4 10x3/uL (3.5-10.5)
[2023-04-05 04:18] LABS: Anion Gap 11 mmol/L (10-20); BUN (Urea Nitrogen) 13 mg/dL (8.4-25.7); Calc. Creatinine Clearance 192 mL/min (70-130); Calcium 8.6 mg/dL (7.8-10.44); Carbon Dioxide 29 mmol/L (22-29); Chloride 103 mmol/L (98-107); Estimated GFR 103; Glucose 137 mg/dL (70-105); Potassium 3.4 mmol/L (3.5-5.1); Sodium 140 mmol/L (136-145)
[2023-04-05] MEDS ORDERED: Potassium Chloride 20 MEQ TAB PO SCH (04:45)
[2023-04-05] MEDS: Metoprolol Tartrate 25 MG TAB PO SCH ×2 (08:01→21:19)
[2023-04-05] MEDS: Morphine ER 15 MG TAB PO SCH ×3 (08:01→21:20)
[2023-04-05] MEDS: metFORMIN 500 MG TAB PO SCH ×2 (08:01→16:51)
[2023-04-05] MEDS: Atorvastatin Calcium 10 MG TAB PO SCH (08:02)
[2023-04-05] MEDS: Furosemide 20 MG TAB PO SCH ×2 (08:02→14:13)
[2023-04-05] MEDS: predniSONE 20 MG TAB PO SCH (08:02)
[2023-04-05] MEDS: Apixaban 5 MG TAB PO SCH ×2 (08:04→21:19)
[2023-04-05] MEDS: Lubiprostone 8 MCG CAP PO SCH ×2 (08:04→21:20)
[2023-04-05] MEDS: Cefepime 2 GM in Sodium Chloride 0.9% 100 ML IVPB SCH ×2 (10:43→21:36)
[2023-04-05] MEDS: HYDROcodone/Acetaminophen 10/325 mg Tablet PO PRN ×2 (10:48→17:30)
[2023-04-05] MEDS ORDERED: Magnesium 2 GM/50 ML(in water) 2 GM in Premix Bag 1 BAG IVPB SCH (11:00)
[2023-04-05] MEDS: Insulin Regular 300 UNITS/3 ML VIAL SC PRN (11:52)
[2023-04-05] MEDS: VANCOMYCIN 1.25 GM/250 ML BAG 1.25 GM in Premix Bag 1 BAG IVPB SCH (13:51)
[2023-04-05] MEDS ORDERED: hydrALAZINE 20 MG/ML VIAL SLOW IVP SCH (18:00)
[2023-04-05] MEDS: Lantus 1000 UNITS/10 ML VIAL SC SCH ×2 (21:18→21:28)
[2023-04-06] MEDS: VANCOMYCIN 1.25 GM/250 ML BAG 1.25 GM in Premix Bag 1 BAG IVPB SCH ×2 (01:48→13:43)
[2023-04-06 05:21] LABS: Anion Gap 14 mmol/L (10-20); BUN (Urea Nitrogen) 12 mg/dL (8.4-25.7); Calc. Creatinine Clearance 213 mL/min (70-130); Calcium 8.7 mg/dL (7.8-10.44); Carbon Dioxide 22 mmol/L (22-29); Chloride 106 mmol/L (98-107); Estimated GFR 106; Glucose 97 mg/dL (70-105); Potassium 3.5 mmol/L (3.5-5.1); Sodium 138 mmol/L (136-145)
[2023-04-06 05:28] LABS: #Eosinphils 0.3 10x3/uL (0.0-0.5); #Monocytes 0.7 10x3/uL (0.0-1.1); #Neutrophils 5.3 10x3/uL (1.5-8.4); %Basophils 0.2 % (0.0-2.0); %Eosinophils 3.1 % (0.0-6.0); %Monocytes 8.4 % (0.0-10.0); Hematocrit 41.1 % (38.8-50.0); Hemoglobin 12.6 g/dL (13.5-17.5); Mean Corpuscular HGB CONC 30.7 g/dL (32.0-36.0); Mean Corpuscular Hemoglobin 26.1 pg (27.0-33.0); Mean Corpuscular Volume 85.3 fl (81.2-95.1); Mean Platelet Volume 11.8 fl (7.4-10.4); Platelet Count 200 10x3/uL (150-450); RBC Distribution Width 16.6 % (11.5-14.5); Red Blood Cell (RBC) Count 4.82 10x6/uL (4.32-5.72); White Blood Cell (WBC) Count 8.7 10x3/uL (3.5-10.5)
[2023-04-06] MEDS: Sodium Chloride 0.9% 1,000 ML IV SCH ×2 (06:36→16:34)
[2023-04-06] MEDS: Furosemide 20 MG TAB PO SCH ×2 (09:48→13:43)
[2023-04-06] MEDS: predniSONE 20 MG TAB PO SCH (09:48)
[2023-04-06] MEDS: Metoprolol Tartrate 25 MG TAB PO SCH ×2 (09:48→22:06)
[2023-04-06] MEDS: Atorvastatin Calcium 10 MG TAB PO SCH (09:48)
[2023-04-06] MEDS: Cefepime 2 GM in Sodium Chloride 0.9% 100 ML IVPB SCH ×2 (09:49→22:06)
[2023-04-06] MEDS: Apixaban 5 MG TAB PO SCH ×2 (09:49→22:06)
[2023-04-06] MEDS: Magnesium Oxide 400 MG TAB PO SCH (09:49)
[2023-04-06] MEDS: metFORMIN 500 MG TAB PO SCH ×2 (09:49→16:35)
[2023-04-06] MEDS: Lubiprostone 8 MCG CAP PO SCH ×2 (09:53→22:06)
[2023-04-06] MEDS: Morphine ER 15 MG TAB PO SCH ×3 (12:13→22:07)
[2023-04-06 12:27] LABS: Vancomycin, Trough 16.3 ug/mL
[2023-04-06] MEDS: HYDROcodone/Acetaminophen 10/325 mg Tablet PO PRN (16:35)
[2023-04-06] MEDS: Lantus 1000 UNITS/10 ML VIAL SC SCH (22:08)
[2023-04-07] MEDS: VANCOMYCIN 1.25 GM/250 ML BAG 1.25 GM in Premix Bag 1 BAG IVPB SCH ×2 (01:41→11:57)
[2023-04-07 04:51] LABS: Anion Gap 12 mmol/L (10-20); BUN (Urea Nitrogen) 11 mg/dL (8.4-25.7); Calc. Creatinine Clearance 211 mL/min (70-130); Calcium 8.7 mg/dL (7.8-10.44); Carbon Dioxide 22 mmol/L (22-29); Chloride 107 mmol/L (98-107); Estimated GFR 106; Glucose 134 mg/dL (70-105); Potassium 3.2 mmol/L (3.5-5.1); Sodium 138 mmol/L (136-145)
[2023-04-07 04:57] LABS: #Eosinphils 0.3 10x3/uL (0.0-0.5); #Monocytes 0.8 10x3/uL (0.0-1.1); #Neutrophils 5.8 10x3/uL (1.5-8.4); %Basophils 0.2 % (0.0-2.0); %Eosinophils 3.1 % (0.0-6.0); %Lymphocytes 23.6 % (18.0-47.0); %Monocytes 9.2 % (0.0-10.0); %Neutrophils 63.6 % (40.0-75.0); Hemoglobin 11.9 g/dL (13.5-17.5); Mean Corpuscular HGB CONC 31.3 g/dL (32.0-36.0); Mean Corpuscular Hemoglobin 26.6 pg (27.0-33.0); Mean Corpuscular Volume 84.8 fl (81.2-95.1); Mean Platelet Volume 10.8 fl (7.4-10.4); Platelet Count 263 10x3/uL (150-450); RBC Distribution Width 16.8 % (11.5-14.5); Red Blood Cell (RBC) Count 4.48 10x6/uL (4.32-5.72); White Blood Cell (WBC) Count 9.1 10x3/uL (3.5-10.5)
[2023-04-07] MEDS: VANCOMYCIN 1.75 GM/350 ML BAG 1.75 GM in Premix Bag 1 BAG IVPB SCH (08:00)
[2023-04-07] MEDS: Atorvastatin Calcium 10 MG TAB PO SCH (09:07)
[2023-04-07] MEDS: Metoprolol Tartrate 25 MG TAB PO SCH ×2 (09:07→21:43)
[2023-04-07] MEDS: Magnesium Oxide 400 MG TAB PO SCH (09:07)
[2023-04-07] MEDS: Apixaban 5 MG TAB PO SCH ×2 (09:07→21:43)
[2023-04-07] MEDS: Furosemide 20 MG TAB PO SCH ×2 (09:07→15:27)
[2023-04-07] MEDS: Cefepime 2 GM in Sodium Chloride 0.9% 100 ML IVPB SCH ×2 (09:07→21:42)
[2023-04-07] MEDS: predniSONE 20 MG TAB PO SCH (09:08)
[2023-04-07] MEDS: metFORMIN 500 MG TAB PO SCH ×2 (09:08→15:27)
[2023-04-07] MEDS: Morphine ER 15 MG TAB PO SCH ×3 (09:08→21:42)
[2023-04-07] MEDS: Lubiprostone 8 MCG CAP PO SCH ×2 (09:10→21:42)
[2023-04-07] MEDS ORDERED: Potassium Chloride 20 MEQ TAB PO SCH (11:00)
[2023-04-07 11:32] LABS: Magnesium 1.7 mg/dL (1.6-2.6)
[2023-04-07] MEDS: HYDROcodone/Acetaminophen 10/325 mg Tablet PO PRN (13:05)
[2023-04-07] MEDS: Ondansetron ODT 4 MG TAB PO PRN (13:05)
[2023-04-07] MEDS: Lantus 1000 UNITS/10 ML VIAL SC SCH (21:43)
[2023-04-08 00:33] LABS: Vancomycin, Trough 15.1 ug/mL
[2023-04-08 04:01] LABS: #Eosinphils 0.3 10x3/uL (0.0-0.5); #Neutrophils 6.3 10x3/uL (1.5-8.4); %Basophils 0.2 % (0.0-2.0); %Lymphocytes 24.2 % (18.0-47.0); %Monocytes 9.5 % (0.0-10.0); %Neutrophils 62.7 % (40.0-75.0); Hemoglobin 12.7 g/dL (13.5-17.5); Mean Corpuscular HGB CONC 31.8 g/dL (32.0-36.0); Mean Corpuscular Hemoglobin 27.2 pg (27.0-33.0); Mean Corpuscular Volume 85.7 fl (81.2-95.1); Mean Platelet Volume 10.8 fl (7.4-10.4); Platelet Count 240 10x3/uL (150-450); Red Blood Cell (RBC) Count 4.67 10x6/uL (4.32-5.72); White Blood Cell (WBC) Count 10.1 10x3/uL (3.5-10.5)
[2023-04-08 04:07] LABS: Anion Gap 12 mmol/L (10-20); BUN (Urea Nitrogen) 10 mg/dL (8.4-25.7); Calc. Creatinine Clearance 199 mL/min (70-130); Calcium 8.8 mg/dL (7.8-10.44); Carbon Dioxide 24 mmol/L (22-29); Chloride 107 mmol/L (98-107); Estimated GFR 104; Glucose 131 mg/dL (70-105); Potassium 3.4 mmol/L (3.5-5.1); Sodium 140 mmol/L (136-145)
[2023-04-08] MEDS: Morphine ER 15 MG TAB PO SCH ×3 (09:06→21:03)
[2023-04-08] MEDS: Atorvastatin Calcium 10 MG TAB PO SCH (09:07)
[2023-04-08] MEDS: Furosemide 20 MG TAB PO SCH ×2 (09:07→14:13)
[2023-04-08] MEDS: Metoprolol Tartrate 25 MG TAB PO SCH ×2 (09:08→21:02)
[2023-04-08] MEDS: Magnesium Oxide 400 MG TAB PO SCH (09:08)
[2023-04-08] MEDS: metFORMIN 500 MG TAB PO SCH ×2 (09:08→16:00)
[2023-04-08] MEDS: Lubiprostone 8 MCG CAP PO SCH ×2 (09:08→21:09)
[2023-04-08] MEDS: Apixaban 5 MG TAB PO SCH ×2 (09:09→21:02)
[2023-04-08] MEDS: predniSONE 20 MG TAB PO SCH (09:09)
[2023-04-08] MEDS: HYDROcodone/Acetaminophen 10/325 mg Tablet PO PRN (10:46)
[2023-04-08] MEDS: Ondansetron ODT 4 MG TAB PO PRN ×3 (10:47→21:02)
[2023-04-08] MEDS: Potassium Chloride 20 MEQ TAB PO SCH (16:00)
[2023-04-08] MEDS ORDERED: Calcium Carbonate 500 MG ChewTAB PO PRN (18:27)
[2023-04-08] MEDS: Lantus 1000 UNITS/10 ML VIAL SC SCH (21:06)
[2023-04-09] MEDS: HYDROcodone/Acetaminophen 10/325 mg Tablet PO PRN ×2 (00:22→11:02)
[2023-04-09] MEDS: Ondansetron ODT 4 MG TAB PO PRN ×2 (03:27→08:27)
[2023-04-09 04:33] LABS: #Eosinphils 0.3 10x3/uL (0.0-0.5); #Neutrophils 6.4 10x3/uL (1.5-8.4); %Basophils 0.2 % (0.0-2.0); %Eosinophils 2.6 % (0.0-6.0); %Lymphocytes 26.3 % (18.0-47.0); %Monocytes 9.1 % (0.0-10.0); %Neutrophils 61.4 % (40.0-75.0); Hematocrit 39.7 % (38.8-50.0); Hemoglobin 12.6 g/dL (13.5-17.5); Mean Corpuscular HGB CONC 31.7 g/dL (32.0-36.0); Mean Corpuscular Hemoglobin 27.2 pg (27.0-33.0); Mean Corpuscular Volume 85.6 fl (81.2-95.1); Mean Platelet Volume 11.2 fl (7.4-10.4); Platelet Count 253 10x3/uL (150-450); RBC Distribution Width 17.1 % (11.5-14.5); Red Blood Cell (RBC) Count 4.64 10x6/uL (4.32-5.72); White Blood Cell (WBC) Count 10.4 10x3/uL (3.5-10.5)
[2023-04-09 05:45] LABS: Anion Gap 14 mmol/L (10-20); BUN (Urea Nitrogen) 11 mg/dL (8.4-25.7); Calc. Creatinine Clearance 194 mL/min (70-130); Calcium 8.7 mg/dL (7.8-10.44); Carbon Dioxide 26 mmol/L (22-29); Chloride 105 mmol/L (98-107); Estimated GFR 103; Glucose 103 mg/dL (70-105); Potassium 3.5 mmol/L (3.5-5.1); Sodium 141 mmol/L (136-145)
[2023-04-09] MEDS: metFORMIN 500 MG TAB PO SCH ×2 (08:24→16:18)
[2023-04-09] MEDS: Metoprolol Tartrate 25 MG TAB PO SCH (08:24)
[2023-04-09] MEDS: Atorvastatin Calcium 10 MG TAB PO SCH (08:24)
[2023-04-09] MEDS: Furosemide 20 MG TAB PO SCH ×2 (08:24→14:17)
[2023-04-09] MEDS: Magnesium Oxide 400 MG TAB PO SCH (08:24)
[2023-04-09] MEDS: predniSONE 20 MG TAB PO SCH (08:25)
[2023-04-09] MEDS: Apixaban 5 MG TAB PO SCH (08:26)
[2023-04-09] MEDS: Morphine ER 15 MG TAB PO SCH ×2 (08:26→14:15)
[2023-04-09] MEDS: Potassium Chloride 20 MEQ TAB PO SCH (08:27)
[2023-04-09] MEDS: Lubiprostone 8 MCG CAP PO SCH (08:33)
[2023-04-09] MEDS: Insulin Regular 300 UNITS/3 ML VIAL SC PRN (12:11)
[2023-04-09 16:11] VITALS: BP 143/81; TEMP 97.9
== END 2023-04-09 17:39 | disposition home or self-care (01) | DRG 871 ==
LOC: CSHERS 14:54 → CSHTELE 21:04 → CSHICU 04-03 09:59 → CSHTELE 04-05 19:56
PROVIDERS: ADMIT Student in an Organized Health Care Education/Training Program; ATTEND Internal Medicine
DX: A41.9 Sepsis, unspecified organism (principal); I21.A1 Myocardial infarction type 2; N17.9 Acute kidney failure, unspecified; E87.20 Acidosis, unspecified; D86.9 Sarcoidosis, unspecified; E11.9 Type 2 diabetes mellitus without complications; E66.01 Morbid (severe) obesity due to excess calories; F41.9 Anxiety disorder, unspecified; F32.A Depression, unspecified; I25.10 Atherosclerotic heart disease of native coronary artery without angina pectoris; G89.4 Chronic pain syndrome; Z20.822 Contact with and (suspected) exposure to COVID-19; Z68.39 Body mass index [BMI] 39.0-39.9, adult; Z95.810 Presence of automatic (implantable) cardiac defibrillator; Z79.84 Long term (current) use of oral hypoglycemic drugs; Z79.899 Other long term (current) drug therapy; Z79.01 Long term (current) use of anticoagulants; Z79.4 Long term (current) use of insulin; Z79.82 Long term (current) use of aspirin; Z91.048 Other nonmedicinal substance allergy status; Z88.8 Allergy status to other drugs, medicaments and biological substances
CPT/HCPCS: 36415; 36416; 70450; 70551; 71045; 71275; 80048; 80053; 80202; 81001; 83605; 83735; 83880; 84484; 85025; 87040; 93005; 93010; 94760; 94762; 96365; J0360; J0692; J0696; J1815; J3370; J3475; J3490; J7050; J7512; Q0162; Q9967; U0002